=== PATIENT | male | born 1945 | race African-American/Black ===

== ENCOUNTER 2017-11-27 06:35 | Day surgery (SDC) | payer MEDICARE, MEDICAID ==
--- NOTE | 2017-11-23 14:17 | Pre-Procedure Note/Attestation ---
Pre-Procedure Note/Attestation Complete Prior to Procedure Planned Procedure: right Procedure Narrative: phaco with IOL Indications for Procedure Pre-Operative Diagnosis: cataract Attestation I attest that I discussed the nature of the procedure; its benefits; risks and complications; and alternatives (and the risks and benefits of such alternatives ), prior to the procedure, with the patient (or the patient's legal inside technical sales representative). I attest that, if there was a reasonable possibility of needing a blood transfusion, the patient (or the patient's legal inside technical sales representative) was given the [facility] standardized written summary, pursuant to the [place] Blood Safety Act ([place] Health and Safety Code # 1645, as amended). I attest that I re-evaluated the patient just prior to the surgery and that there has been no change in the patient's H&P, except as documented below: WANG BRITTON Nov 23, 2017 14:17
--- NOTE | 2017-11-23 14:19 | Opthalmology H&P ---
Ophthalmology H&P H&P Chief Complaint: decreased vision in right eye HPI Vision Affects Ability to: read, focus/use eyes together, manage personal affairs HPI Narrative blurry vision Exam Visual Acuity: OD: 20/50 OS: 20/25 Tension: OD: 14 OS: 13 Eye Exam: normal OU: external exam, palpebral fissure-width, marginal reflex distance, levator function, corneas, anterior chambers, fundus exam, findings: lens - OD: ns OS: IOL Assessment/Plan Diagnosis: (1) Nuclear age-related cataract, right eye Attestation Attestation The risks and benefits of the surgery as well as alternative procedures were explained to the patient in detail. WANG BRITTON Nov 23, 2017 14:18
[2017-11-27] VITALS (7 sets, daily range): BP systolic 116–140; BP diastolic 70–84
[~2017-11-27] VITALS: Ht 182.9 cm; Wt 88.5 kg
[2017-11-27] MEDS ORDERED: Sterile Water Irrig 1000ml IRRIG ONE (06:36)
[2017-11-27] MEDS ORDERED: Glycopyrrolate 0.2mg/ml 1ml Vial ONE (06:36)
[2017-11-27] MEDS ORDERED: NS Irrig 1000ml ONE (06:36)
[2017-11-27] MEDS ORDERED: fentaNYL 100 mcg/2 mL IV ONE (06:36)
[2017-11-27] MEDS ORDERED: LR 1000ml ONE (06:36)
[2017-11-27] MEDS ORDERED: Midazolam 2mg/2ml Inj ONE (06:36)
[2017-11-27] MEDS ORDERED: Proparacaine 0.5% Opth Soln 15ml RIGHT EYE ONE (07:00)
[2017-11-27] MEDS ORDERED: Tetracaine 0.5% Opth 4ml Soln RIGHT EYE ONE (07:00)
[2017-11-27] MEDS ORDERED: Akten 3.5% 1ml Btl RIGHT EYE ONE (07:00)
[2017-11-27] MEDS: Cyclopentolate 1% Opth Sol 2ml RIGHT EYE SCH ×3 (10:43→11:02)
[2017-11-27] MEDS: Diclofenac Sod 0.1% Op Soln RIGHT EYE SCH ×3 (10:43→11:03)
[2017-11-27] MEDS: Phenylephrine 10% Opth Soln 5ml RIGHT EYE SCH ×3 (10:43→11:03)
[2017-11-27] MEDS: Tropicamide 1% Opth 15ml Soln RIGHT EYE SCH ×3 (10:43→11:02)
[2017-11-27] MEDS: Tobramycin Op Soln 0.3% 5ml RIGHT EYE SCH ×3 (10:43→11:02)
[2017-11-27] MEDS ORDERED: TYLENOL325 MG ORAL (11:00)
[2017-11-27] MEDS ORDERED: LR 1000ml 1,000 ML IVLG SCH (11:02)
--- NOTE | 2017-11-27 11:08 | Anethesia Preoperative Eval ---
Anesthesia Pre-op PMH/ROS General Date of Evaluation: Nov 27, 2017 Time of Evaluation: 10:15 Anesthesiologist: Antoine ASA Score: ASA 2 Mallampati Score Class I : Soft palate, uvula, fauces, pillars visible Class II: Soft palate, uvula, fauces visible Class III: Soft palate, base of uvula visible Class IV: Only hard plate visible Mallampati Classification: Class II Surgeon: Tiffanie Diagnosis: Cataract right eye Surgical Procedure: Extraction of cataract right eye Family History: no anesthesia problems Allergies: Coded Allergies: No Known Allergies (Unverified , 11/27/17) Medications: see eMAR Past Medical History Cardiovascular: Denies: HTN, CAD, MO, valve dz, arrhythmia, other Pulmonary: Denies: asthma, COPD, KATI, other Gastrointestinal/Genitourinary: Denies: GERD, CRI, ESRD, other Neurologic/Psychiatric: Denies: dementia, CVA, depression/anxiety, TIA, other Endocrine: Denies: DM, hypothyroidism, steroids, other HEENT: Reports: cataract (L), cataract (R), Denies: glaucoma, INAJA (L), INAJA (R), other Hematology/Immune: Denies: anemia, DVT, bleeding disorder, other Musculoskeletal/Integumentary: Denies: OA, RA, DJD, DDD, edema, other PMH Narrative: BPH PSxH Narrative: Cataract Anesthesia Pre-op Phys. Exam Physician Exam Last Vital Signs Date Time Temp Pulse Resp B/P (MAP) Pulse Ox O2 Delivery O2 Flow Rate FiO2 11/27/17 10:52 98.0 69 17 127/71 100 Room Air 98.0 Constitutional: NAD Neurologic: CN 2-12 intact Cardiovascular: RRR, no M/R/G Respiratory: CTA Gastrointestinal: S/NT/ND Airway Exam Mallampati Score: Class II MO: full ROM: full Teeth: missing Anesthesia Pre-op A/P Studies Pre-op Studies: EKG - ?septal infarct? Risk Assessment & Plan Assessment: Class 2 male for cataract extraction Plan: MAC Status Change Before Surgery: No Pre-Antibiotics Drug: None DAVID VERA M.D. Nov 27, 2017 11:08
--- NOTE | 2017-11-27 11:09 | Immediate Post-Op Evaluation ---
Immediate Post-Op Evalulation Immediate Post-Op Evalulation Nausea: No Vomiting: No Complications Patient was treated by another anesthesiologist secondary to schedule change. Drug: None DAVID VERA M.D. Nov 27, 2017 11:09
[2017-11-27] MEDS ORDERED: fentaNYL 100 mcg/2 mL IV PRN (11:15)
[2017-11-27] MEDS ORDERED: LR 1000ml 1,000 ML IV SCH (11:15)
[2017-11-27 11:51] LABS: BASOPHILS % (AUTO) 0.8 % (0.0-2.0); EOSINOPHILS % (AUTO) 3.4 % (0.0-3.0); HEMATOCRIT 43.4 % (42.0-52.0); HEMOGLOBIN 14.5 G/DL (14.2-18.0); LYMPHOCYTES % (AUTO) 26.2 % (20.0-45.0); MEAN CORPUSCULAR VOLUME 96 FL (80-99); MONOCYTES % (AUTO) 10.9 % (1.0-10.0); NEUTROPHILS % (AUTO) 58.7 % (45.0-75.0); PLATELET COUNT 240 K/UL (150-450); RED BLOOD COUNT 4.52 M/UL (4.70-6.10); RED CELL DISTRIBUTION WIDTH 12.1 % (11.6-14.8)
[2017-11-27 11:55] LABS: ANION GAP 6 mmol/L (5-15); BLOOD UREA NITROGEN 9 mg/dL (7-18); CALCIUM 8.5 MG/DL (8.5-10.1); CARBON DIOXIDE 28 MMOL/L (21-32); CHLORIDE 106 MMOL/L (98-107); CREATININE 0.8 MG/DL (0.55-1.30); POTASSIUM 4.1 MMOL/L (3.5-5.1); SODIUM 140 MMOL/L (136-145)
[2017-11-27] MEDS ORDERED: EPINEPHrine 1mg/1ml Amp ONE (13:29)
[2017-11-27] MEDS ORDERED: BSS 15ml BTL ONE (13:29)
[2017-11-27] MEDS ORDERED: Sodium Hyaluronate 14 mg/ml 0.85ml ONE (13:29)
[2017-11-27] MEDS ORDERED: Povidone-Iodine 5% opth solution ONE (13:29)
[2017-11-27] MEDS ORDERED: BSS 500ml btl ONE (13:29)
--- NOTE | 2017-11-27 13:54 | Operative Note - PDOC ---
Operative Note Operative Note Date of Operation/Procedure: Nov 27, 2017 Chief Complaint: blurry vision Pre-op Diagnosis: cataract, OD Procedure: phaco with IOL, OD Post-op Diagnosis: Pseudophakia Post-op Diagnosis: same as pre-op Surgeon: Tiffanie Anesthesiologist: Antoine Anesthesia: MAC Specimen: none Complications: none Fluids: LR Estimated Blood Loss: none Drains: none Implant(s) used?: Yes Indications for Procedure cataract Description of Procedure This patient has been complaining visually significant cataract in the affected eye with the best corrected visual acuity under moderate glare conditions worse. The patient complains of difficulties with glare in performing activities of daily living and wants to manage personal affairs with comfort and accuracy and see well enough to move with safety at home and outdoors. The risks, benefits and alternatives of the procedure were discussed with the patient in the office prior to scheduling surgery. All questions from the patient were answered after the surgical procedure was explained in detail. The risks of the procedure as explained to the patient include, but are not limited to, pain, infection, bleeding, loss of vision, retinal detachment, need for further surgery, loss of lens nucleus, double vision, etc. Alternative procedures were discussed which include, to do nothing or seek a second opinion. Informed consent for this procedure was obtained from the patient. The patient was referred to a primary care physician for a cardiopulmonary clearance prior to surgery, after proper evaluation was done patient was properly scheduled for outpatient surgery. The patient was brought to the operating room where the anesthesiologist established I.V. lines and cardiac monitoring leads. Mild intravenous sedation was administered. The patient was then prepared with a 5% solution of povidone- iodine to the conjunctival fornix and lashes, and a 10% solution of povidone- iodine to the lids and periorbital skin. The patient was then draped in the usual sterile fashion. A lid speculum was then placed in the operative eye. A keratome blade was then used to create a biplanar incision into the anterior chamber. Viscoelastics was then instilled into the anterior chamber. A capsulorrhexis was then fashioned with an utrata forceps. BSS and a cannula were then used to hydrodissect and hydro delineate the lens. Paracentesis incision was made at 3 o'clock with sharp blade. The phacoemulsification unit, after being properly adjusted and tested, was then used to emulsify the nucleus followed by aspiration and irrigation of residual cortical material with the I and A unit. Healon was then instilled into the anterior chamber. The corneal wound was then enlarged to the size of the optic with the norman keratome blade. The intraocular lens was then inspected for right power and size and thought to be satisfactory. Then the lens was gently placed in the capsular bag. Positioning within the capsular bag was confirmed by direct visualization. Optic centration was accomplished with a [place] hook. Viscoelastics was removed from the anterior chamber using the irrigation and aspiration unit. The corneal wound was then tested for leaks and none were found. The lid speculum were then removed. Sponge and needle counts were correct. An eye patch and shield were placed over the operative eye. The patient was taken to the recovery room in stable condition. There were no complications. The patient tolerated the procedure well. The patient was then transferred to the ambulatory surgery unit in stable and satisfactory condition , was given detailed written instructions and asked to follow up in the office the next day. WANG BRITTON M.D. WANG BRITTON Nov 27, 2017 13:54
--- NOTE | 2017-11-27 13:54 | Brief Operative Note ---
Immediate Post Operative Note Operative Note Chief Complaint: blurry vision Pre-op Diagnosis: cataract, OD Procedure: phaco with IOL, OD Post-op Diagnosis: Pseudophakia Post-op Diagnosis: same as pre-op Surgeon: Tiffanie Anesthesiologist: Antoine Anesthesia: MAC Specimen: none Complications: none Fluids: LR Estimated Blood Loss: none Drains: none Implant(s) used?: Yes WANG BRITTON Nov 27, 2017 13:53
== END 2017-11-27 11:45 | disposition home or self-care (01) ==
LOC: SUR 06:35
DX: H25.11 Age-related nuclear cataract, right eye (principal); Z96.642 Presence of left artificial hip joint; Z83.3 Family history of diabetes mellitus; Z80.1 Family history of malignant neoplasm of trachea, bronchus and lung; Z82.49 Family history of ischemic heart disease and other diseases of the circulatory system; M54.9 Dorsalgia, unspecified
CPT/HCPCS: 36415; 66984; 80048; 85025; J0171; J2250; J3010; J7120; V2632; 94003; 94150